=== PATIENT | female | born 1970 | race Caucasian/White ===

== ENCOUNTER 2017-03-24 08:32 | Inpatient (IN) | payer BC ==
[2017-03-18 10:04] LABS: WBC (NOT ORDERED) (RFLEX) 0 (0-5)
[2017-03-18 10:31] LABS: BASOPHILS 0.5 %; BASOPHILS ABSOLUTE 0.06 10/3/uL (0.0-0.16); EOSINOPHILS 1.6 %; HEMATOCRIT 42.6 % (36.0-48.0); HEMOGLOBIN 13.8 g/dL (12.0-16.0); IMMATURE GRANULOCYTES 0.2 %; IMMATURE GRANULOCYTES ABSOLUTE 0.03 10/3/uL (0.0-0.11); LYMPHOCYTES 30.3 %; LYMPHOCYTES ABSOLUTE 3.72 10/3/uL (0.67-4.30); MEAN CORPUS HGB CONC 32.4 g/dL (32.0-36.0); MEAN CORPUSCULAR HEMOGLOB 26.8 pg (26.0-34.0); MEAN CORPUSCULAR VOLUME 82.9 fL (80-100); MEAN PLATELET VOLUME 10.6 fL (9.2-13.0); MONOCYTES 6.4 %; MONOCYTES ABSOLUTE 0.79 10/3/uL (0.21-1.20); NEUTROPHILS ABSOLUTE 7.48 10/3/uL (2.02-8.40); PLATELET COUNT 346 10/3/uL (150-400); RBC DISTRIBUTION WIDTH 14.7 % (12.0-16.0); RED CELL COUNT 5.14 10/6/uL (4.0-5.6); WHITE BLOOD CELLS 12.3 10/3/uL (4.5-10.5)
[2017-03-18 10:33] LABS: MANUAL DIFF NO %
[2017-03-18 10:35] LABS: ASCORBIC ACID (UR NOT ORDER) NEG (NEG); BILIRUBIN, URINE NEGATIVE (NEG); KETONE, URINE TRACE MG/DL (NEG); LEUKOCYTE ESTERASE(NOT OR NEG (NEG)
[2017-03-21 17:42] LABS: INTERNATIONAL NORMAL RATI 1.1 UNITS (-); PARTIAL THROMBO TIME 29.6 SEC (22.5-37.2); PROTIME (NOT ORD) 13.7 SEC (12.0-14.5)
[2017-03-21 18:10] LABS: ALBUMIN 3.9 G/DL (3.5-5.0); ALKALINE PHOSPHATASE 79 U/L (45-117); BUN (BLOOD UREA NITROGEN) 15 MG/DL (6-23); CALCIUM, SERUM 9.5 MG/DL (8.5-10.4); CHLORIDE, SERUM 98 MMOL/L (96-112); CHOL/HDL RATIO(NOT ORDER) 2.6 (0-5); CHOLESTEROL 149 MG/DL (< 200); CO2 (CARBON DIOXIDE) 27 MMOL/L (24-34); FOLATE 19.2 NG/ML (>5.2); GFR AFRICAN AMERICAN 128 ML/MIN (>=60); GFR NON AFRICAN AMERICAN 110 ML/MIN (>=60); GLOBULIN 3.9 G/DL (2.5-4.1); GLUCOSE, SERUM 86 MG/DL (60-99); HDL CHOLESTEROL 58 MG/DL (> 49); IRON, SERUM 34 MCG/DL (35-150); LDL CHOLESTEROL 68 MG/DL (< 130); NON-HDL CHOLESTEROL 91 MG/DL (< 160); POTASSIUM, SERUM 4.3 MMOL/L (3.5-5.3); SGOT(AST) 12 U/L (5-40); SGPT(ALT) 21 U/L (5-65); SODIUM, SERUM 137 MMOL/L (135-148); T3 UPTAKE 37 % (30-45); TOTAL BILIRUBIN 0.3 MG/DL (0-1.2); TOTAL PROTEIN 7.8 G/DL (6.0-8.5); TRIGLYCERIDE 116 MG/DL (< 150)
--- NOTE | ~2017-03-24 | OP ---
Record Of Operation [facility] [address] [place]. [address] NAME: GRACE ANDRADE : 74 STATUS : ADM IN [facility]#: [id number] AGE: 47 ADM/REG DATE : 03/24/17 MR#: [id number] REPORT SERV DATE: 03/24/17 DICTATED BY: ALFONZO ZUÑIGA DATE: 03/24/17 REPORT STATUS : Draft TRANSCRIBED BY: BOO DATE: 03/24/17 DATE OF PROCEDURE: PREOPERATIVE DIAGNOSIS: Band intolerance and morbid obesity. POSTOPERATIVE DIAGNOSIS: Band intolerance and morbid obesity. OPERATION: Digastric band explantation and conversion to a laparoscopic sleeve gastrectomy. SURGEON: Alfonzo Zuñiga M.D. ANESTHESIA: General endotracheal. COMPLICATIONS: None. INDICATION FOR PROCEDURE: This is a 47-year-old white female, who is status post a Realize gastric band placement in 2008. She had initial weight loss, but then she developed significant intolerance and poor weight loss. She has a BMI of 49.9 and a weight of 281.8 pounds now. She has hypertension. DESCRIPTION OF OPERATION: The patient was taken to the operating room and after adequate general endotracheal anesthesia, was prepped and draped in a sterile manner. First we made an incision on top of the access port carefully and went all the way down to the subcutaneous tissue with a cautery excising capsulation tissue around the access port, removed the port, the port is a Realize port, so it is attached to the fascia with the hooks, so we had to remove each one of those attachments to the hook to separate the port from the fascia. After that was completely, then the port was mobilized and removed. We did excise some of the encapsulation tissue that was in the fascia and the surroundings and then we placed 5 trocars in the upper portion of the abdomen, insufflated the abdominal cavity with CO2 gas. I the left lobe of the liver. We did identify there were some adhesions around the tubing on the left upper quadrant and significant adhesions in between the liver and the upper portion of the stomach, so we did remove all the adhesions, mobilized the tubing, and also the liver from the upper portion of the stomach and the band with a Harmonic scalpel. After a tedious dissection, we were able to separate it completely. Then carefully we mobilized the band by removing all the adhesions around the buckle, opened the band, it is a Realize band C and we were able to open it and remove it out of the tunnel and then removed it out of the abdomen with all the pieces in place with no problems. Then we proceeded to start dissecting the gastric plication. Started mobilizing that following the tunnel, we started mobilizing the fundus completely lateralizing the fundus to make sure that we recreate the anatomy, so we used the Harmonic Scalpel to mobilize all those adhesions until the gastric plication was removed anteriorly and lateral and then we also started incising the encapsulation tissue and started peeling off the encapsulation tissue with the Harmonic Scalpel until we kind of expand the portion of the fundus that was attached to that area. Then we proceeded to enter the lesser sac at the level of the lower body of the stomach next to the greater curvature and started dissecting the greater curvature with the Harmonic Record Of Operation [facility] [address] [place]. [address] NAME: GRACE ANDRADE : 74 STATUS : ADM IN [facility]#: [id number] AGE: 47 ADM/REG DATE : 03/24/17 MR#: [id number] REPORT SERV DATE: 03/24/17 DICTATED BY: ALFONZO ZUÑIGA DATE: 03/24/17 REPORT STATUS : Draft TRANSCRIBED BY: BOO DATE: 03/24/[address] up to the fundus and mobilized the fundus all the way up to the left alhaji. At the level of the left alhaji, there was a lot of adhesions from the posterior scar tissue from the bands where we were able to enter the encapsulation tissue where the band was located and mobilized all that area to make sure that we removed all the scar tissue and the attachments from the fundus to separate the fundus completely posteriorly as well and tried to recreate the anatomy as normal as possible and then mobilized the rest of the greater curvature all the way down to the distal antrum to about 3 cm or so from the pylorus. After we did that, then we introduced a 36-Divehi blunt-tip bougie suction catheter all the way down to the distal antrum, put it on suction to delineate well the stomach and started stapling about 5 cm from the pylorus using the [place] automatic stapler with a green load and stapler reinforcement using the SeamGuard. We used a total of 5 staplers from the bottom to the top. Staple line looked intact. There was no evidence of bleeding or oozing. We were able to staple on the top where the band was located before with no problems as we removed most of the scar tissue there. Then proceeded to tag the greater omentum into the staple line at the top, middle, and lower portion with interrupted Vicryl 2 0 sutures. I then removed the bougie and we put it in and out to verify there was no evidence of obstruction and then removed the stomach specimen through the 15 mm trocar site after we stretched it with a Nel and then closed that fascia defect within an EFX fascia closure device. I then removed all the trocars and liver retractor under direct visualization and closed all the incisions with subcuticular Monocryl 4-0. The incision where the patient had the access port, we closed the skin and the subcutaneous tissue with a Vicryl 2-0 in interrupted fashion and the skin with subcuticular Monocryl 4-0. The patient tolerated the procedure well and did not have any problems. MARCIA Alfonzo Prieto M.D. / [id number] CC: Alfonzo Zuñiga M.D.
--- NOTE | ~2017-03-24 | HP ---
History And Physical [facility] [id number] [place]. [address] NAME: GRACE ANDRADE : 74 STATUS : PRE IN PAT#: [id number] AGE: 47 ADM/REG DATE : MR#: [id number] REPORT SERV DATE: 03/23/17 DICTATED BY: ALFONZO ZUÑIGA DATE: 03/23/17 REPORT STATUS : Draft TRANSCRIBED BY: MODL DATE: 03/23/17 DATE OF ADMISSION: 03/24/2017 DICTATED BY: Maryanne Brown APRN, ASIM-Gustavo, HUNG. CHIEF COMPLAINT: Morbid obesity status post laparoscopic adjustable gastric banding with band intolerance. HISTORY OF PRESENT ILLNESS: The patient is status post laparoscopic adjustable gastric band with a Realize-C in May of 2009. She had a starting weight of 309.5 pounds and a BMI of 54. She was able initially to lose some weight reaching a low weight of 247 pounds, a 32% excess weight loss in 2013; however, she developed symptoms of obstruction including vomiting, dysphagia, and reflux which necessitated fluid removal. She has been unable to tolerate any level of restriction with a band and has regained weight. She currently has a weight of 281 pounds with a BMI of 49.8. At this time, she is wanting to move forward with removal of the laparoscopic adjustable gastric band and conversion to sleeve gastrectomy in order to improve these symptoms but aid the patient in weight loss. PAST SURGICAL HISTORY: She has a positive history of a open pyloric stenosis repair in 1971. Tonsillectomy. A benign lumpectomy to the breast. In 2004, she underwent a laparoscopic cholecystectomy. In 2008, laparoscopic adjustable gastric band with a Realize-C band. An anterior crural repair of hiatal hernia. A spinal fusion with anterior approach and a left ORIF of the forearm. PAST MEDICAL HISTORY: The patient has a significant history of depression, hypertension diagnosed in 2006, treated with 1 medication, and then intermittent GERD symptoms related to her Lap-Band. FAMILY HISTORY: Father has a history of hypertension, coronary bypass, mitral valve replacement, and heart disease. Mother has a significant history for hypertension and hypoglycemia. SOCIAL HISTORY: The patient is a white female, former smoker with no EtOH abuse. CURRENT MEDICATIONS: Wellbutrin 100 mg; citalopram 20 mg; gabapentin 300 mg; lisinopril 20 mg/hydrochlorothiazide 25 mg; and omeprazole 40 mg. ALLERGIES: NO KNOWN DRUG ALLERGIES. REVIEW OF SYSTEMS: The patient reports recent weight gain that was unintentional and history of ongoing obesity. She reports intermittent acid reflux with generalized arthropathy. She reports depression that is controlled with current medications. Additionally her lab work for preadmission testing shows elevation with leukocytosis. The patient has had previous workup with Hematology-Oncology and this was found to be benign. She currently has no left shift and no platelet elevation. History And Physical [address] [place]. [address] NAME: GRACE ANDRADE : 74 STATUS : PRE IN PAT#: [id number] AGE: 47 ADM/REG DATE : MR#: [id number] REPORT SERV DATE: 03/23/17 DICTATED BY: ALFONZO ZUÑIGA DATE: 03/23/17 REPORT STATUS : Draft TRANSCRIBED BY: BOO DATE: 03/23/17 PHYSICAL EXAMINATION: CONSTITUTIONAL: The patient is morbidly obese. No acute distress. Ambulating normally. VITAL SIGNS: Stable. The patient is afebrile. HEENT: Head, pupils are equal, round, and reactive to light. Ear, nose, and throat are within normal limits. NECK: Supple. Trachea midline with no masses. CARDIOVASCULAR: Heart auscultation, regular rate and rhythm. LUNGS: Respiratory effort, no dyspnea; auscultation, no wheezes, rales, crackles, or rhonchi. Breath sounds are normal and clear to auscultation. ABDOMEN: Inspection and palpation, no tenderness, guarding, masses, or rebound tenderness. Abdomen is soft and nondistended. Bowel sounds are normal. PSYCHIATRIC: Insight, good judgment and insight. Mental status, normal mood and affect and active and alert. Orientation to time, place, and person. ADDITIONAL VITALS: Bariatric, BMI is 49.8 with an ideal body weight of 115 pounds. ASSESSMENT AND PLAN: The patient is status post LAGB 2008 for the treatment of morbid obesity, who has developed symptoms of intolerance to the band with weight gain, necessitating explantation of the Lap-Band and conversion to sleeve gastrectomy. We have discussed in length the risks, benefits, and alternatives to the procedure. At this time, the patient is prepared to proceed with a laparoscopic sleeve gastrectomy. She understands that 60% to 70% excess weight loss is expected although given previous surgery, this may be a slower weight loss with less excess weight loss percentage achieved. We have discussed in length given her previous bariatric surgery. She also has increased risk associated and there is a possibility we may not be able to proceed with a conversion as planned. The patient verbalizes understanding. Denies current questions or additional needs. At this time, we are prepared to proceed with surgery. The patient has completed steps according to the MBSAQIP undergoing psychological and nutritional evaluation and instruction and has been provided with postop instructions regarding diet and activity. KWABENA/MODL Alfonzo Prieto M.D. / [id number] CC: Franci Patel NP
[~2017-03-24 08:32] MED LIST: ACET500CAP PO; CENTRUM PO; GAS-X80 MG PO; NEUR300 PO; VOLT75 PO; ZESTORETIC1 TA1 PO
[2017-03-25] MEDS ORDERED: SUCR PO (14:28)
== END 2017-03-25 15:23 | disposition home or self-care (01) | DRG 621 ==
LOC: SDC/OF 08:32 → PACU 13:46 → 2SO 15:26
PROVIDERS: Nurse Practitioner Family; Surgery
PROC: 0DB64Z3 Excision of Stomach, Percutaneous Endoscopic Approach, Vertical (ICD-10-PCS; principal; 2017-03-24 10:00)
PROC: 0DP64CZ Removal of Extraluminal Device from Stomach, Percutaneous Endoscopic Approach (ICD-10-PCS; 2017-03-24 10:00)
DX: E66.01 Morbid (severe) obesity due to excess calories (principal); F32.9 Major depressive disorder, single episode, unspecified; Y83.2 Surgical operation with anastomosis, bypass or graft as the cause of abnormal reaction of the patient, or of later complication, without mention of misadventure at the time of the procedure; Y73.3 Surgical instruments, materials and gastroenterology and urology devices (including sutures) associated with adverse incidents; Z68.42 Body mass index [BMI] 45.0-49.9, adult; Z87.891 Personal history of nicotine dependence; Z90.49 Acquired absence of other specified parts of digestive tract; Z98.84 Bariatric surgery status
CPT/HCPCS: 74246; 80053; 80061; 81001; 82607; 82746; 83036; 83540; 84443; 84479; 84703; 85025; 85610; 85730; 88307; 93005; A9270-GY; C9113; J0690; J1170; J1885; J2250; J2370; J2405; J2550; J2710; J2795; J3010